=== PATIENT | male | born 1990 | race Caucasian/White ===

== ENCOUNTER 2022-11-21 21:40 | Emergency (ER) | payer SELFPAY ==
[~2022-11-21] VITALS: Ht 167.6 cm; Wt 70.0 kg
[2022-11-21] MEDS ORDERED: SODIUM CHLORIDE 0.9% 1,000 ML IV ONE (22:45)
[2022-11-21] MEDS ORDERED: ONDANSETRON HCL 4MG/2ML INJ IV ONE (22:45)
[2022-11-22 05:57] LABS: CHLORIDE 108 mEq/L (98-107)
[2022-11-22 06:01] LABS: BASOPHILS % 0.3 % (0.0-2.0); HEMATOCRIT. 48.2 % (42.0-52.0); HEMOGLOBIN. 16.6 g/dL (14.0-18.0); LYMPHOCYTES % 19.2 % (20.0-50.0); MEAN CORPUSCULAR HEMOGLOBIN 30.1 pg (28.0-32.0); MEAN CORPUSCULAR VOLUME 87.2 fL (80.0-94.0); MEAN PLATELET VOLUME 7.7 fl (7.4-10.4); MONOCYTES % 4.5 % (2.0-8.0); PLATELET 267 x1000/uL (130-400); RED BLOOD CELL COUNT 5.53 mill/uL (4.7-6.1); RED CELL DISTRIBUTION WIDTH 12.9 % (11.6-14.6)
[2022-11-22 06:06] LABS: ETHANOL BLOOD 114 mg/dL (-10)
[2022-11-22 06:37] VITALS: BP 106/64; PULSE 85; RESP 16; TEMP 98
== END 2022-11-22 06:39 | disposition home or self-care (01) ==
LOC: ER 21:40
DX: F10.129 Alcohol abuse with intoxication, unspecified (principal); R11.10 Vomiting, unspecified; Y90.5 Blood alcohol level of 100-119 mg/100 ml
CPT/HCPCS: 36415; 71045; 99284; 80053; 80320; 85025; J7030; G0480